=== PATIENT | female | born 1970 | race Caucasian/White ===

== ENCOUNTER 2023-04-08 14:22 | Emergency (ER) | payer OTHER ==
[2023-04-08 15:49] LABS: ALT (SGPT) 52 U/L (8-55); AST (SGOT) 21 U/L (5-34); Albumin 2.3 g/dL (3.5-5.0); Alkaline Phosphatase 58 U/L (40-110); Anion Gap 13 mmol/L (10-20); BUN (Urea Nitrogen) 52 mg/dL (9.8-20.1); Bilirubin, Total 0.3 mg/dL (0.2-1.2); Calc. Creatinine Clearance 0 mL/min (70-130); Calcium 7.4 mg/dL (7.8-10.44); Carbon Dioxide 19 mmol/L (22-29); Chloride 106 mmol/L (98-107); Estimated GFR 84; Globulin 1.9 g/dL (2.4-3.5); Glucose 101 mg/dL (70-105); Lipase 24 U/L (8-78); Potassium 3.6 mmol/L (3.5-5.1); Protein, Total 4.2 g/dL (6.0-8.3); Sodium 134 mmol/L (136-145); Troponin I 0.019 ng/mL (< 0.028)
[2023-04-08 15:54] LABS: Hemoglobin 5.4 g/dL (12.0-16.0); Mean Corpuscular HGB CONC 33.8 g/dL (32.0-36.0); Mean Corpuscular Hemoglobin 29.8 pg (27.0-31.0); Mean Corpuscular Volume 88.3 fl (78.0-98.0); Mean Platelet Volume 6.7 fL (7.4-10.4); Platelet Count 250 10x3/uL (130-400); Red Blood Cell (RBC) Count 1.81 mill/uL (4.20-5.40)
[2023-04-08] MEDS ORDERED: Pantoprazole 40 MG VIAL ONE ×2 (16:10→17:16)
[2023-04-08] MEDS ORDERED: Cefepime 2 GM VIAL ONE ×2 (16:10→16:11)
[2023-04-08 16:18] LABS: Acetaminophen 13 mcg/mL (10.0-30.0); Alcohol Less than 10.0 mg/dL (Less than 10); Salicylate Less than 8.0 mg/dL (15.0-30.0)
[2023-04-08 17:27] LABS: Band 32 % (5-11); Lymphocytes 12 % (21-51); MDiff Complete? YES; Monocytes 4 % (0-10); Neutrophil 52 % (42-75)
== END 2023-04-08 17:00 | disposition short-term general hospital (02) ==
LOC: BURERS 14:22
DX: D64.9 Anemia, unspecified (principal); R50.9 Fever, unspecified; I95.9 Hypotension, unspecified
CPT/HCPCS: 36416; 36430; 36556; 71045; 80053; 80307; 82274; 83605; 83690; 83880; 84484; 85025; 86850; 86900; 86901; 87804; 93005; 96365; 96368; 96376; C9113; J0692; P9016